=== PATIENT | female | born 1980 | race African-American/Black ===

== ENCOUNTER 2017-12-30 21:50 | Emergency (ER) | payer OTHER | END 2017-12-30 22:20 | disposition home or self-care (01) | LOC: SCSER 21:50 | DX: I10 Essential (primary) hypertension (principal) | CPT/HCPCS: 99283 ==

== ENCOUNTER 2018-03-27 22:37 | Emergency (ER) | payer OTHER ==
[2018-03-27] MEDS ORDERED: Lidocaine 1% w/Epinephrine 1:100K 20 ML VIAL ONE (23:13)
[2018-03-27] MEDS ORDERED: Bacitracin Zinc 1 Packet ONE (23:31)
[2018-03-27] MEDS ORDERED: Ibuprofen 800 MG TAB ONE (23:31)
[2018-03-27] MEDS ORDERED: Adacel (T-DAP) 0.5 ML VIAL ONE (23:37)
== END 2018-03-27 23:46 | disposition home or self-care (01) ==
LOC: ERS 22:37
DX: L02.411 Cutaneous abscess of right axilla (principal)
CPT/HCPCS: 10061; 87070; 87205; 90471; 90715; J2001

== ENCOUNTER 2019-05-30 16:34 | Emergency (ER) | payer OTHER ==
[2019-05-30] MEDS ORDERED: Ketorolac Tromethamine 30 MG/ML VIAL ONE (17:50)
== END 2019-05-30 18:07 | disposition home or self-care (01) ==
LOC: ERS 16:34
DX: K64.4 Residual hemorrhoidal skin tags (principal)
CPT/HCPCS: 96372; 99283; J1885

== ENCOUNTER 2021-04-05 09:15 | Outpatient (CLI) | payer OTHER | END 2021-04-05 09:16 | disposition home or self-care (01) | LOC: BICRAD 09:15 | PROVIDERS: ATTEND Nurse Practitioner Family | DX: Z01.818 Encounter for other preprocedural examination (principal) | CPT/HCPCS: 36415; 71046; 80053; 80074; 81001; 83036; 84443; 84702; 85025; 85610; 85730; 86803; 87389 ==

== ENCOUNTER 2021-06-15 13:12 | Emergency (ER) | payer OTHER | END 2021-06-15 14:34 | disposition home or self-care (01) | LOC: ERS 13:12 | DX: Z48.03 Encounter for change or removal of drains (principal) | CPT/HCPCS: 99282 ==